=== PATIENT | female | born 1990 | race Caucasian/White ===

== ENCOUNTER 2017-02-26 09:45 | Emergency (ER) | payer OTHER ==
[~2017-02-26] VITALS: Ht 157.5 cm; Wt 68.2 kg
[2017-02-26] MEDS ORDERED: FOLI1TAB4 PO (09:54)
[2017-02-26 10:00] VITALS: BP 122/72
== END 2017-02-26 10:27 | disposition home or self-care (01) ==
LOC: M ED 09:45
DX: O26.891 Other specified pregnancy related conditions, first trimester (principal); N89.8 Other specified noninflammatory disorders of vagina; Z91.018 Allergy to other foods; Z91.040 Latex allergy status; Z88.8 Allergy status to other drugs, medicaments and biological substances; Z3A.13 13 weeks gestation of pregnancy

== ENCOUNTER → 2018-06-27 | Outpatient (REF) | payer OTHER ==
[~2018-06-27] MED LIST: FOLI1TAB11 PO
[2018-06-27 12:48] LABS: FREE T4 1.02 NG/DL (0.76-1.46); THYROID PEROXIDASE ANTIBODY < 28.0 U/ML (<60.0)
== END ==
LOC: M LABDRAW1 10:52
PROVIDERS: ATTEND Nurse Practitioner Family
DX: R63.5 Abnormal weight gain (principal)

== ENCOUNTER → 2019-01-01 | Outpatient (REF) | payer OTHER ==
[2019-01-01 12:39] LABS: FREE T4 0.85 NG/DL (0.76-1.46); THYROID STIMULATING HORMONE 2.73 uIU/ML (0.358-3.740)
== END ==
LOC: M LABDRAW1 10:20
PROVIDERS: ATTEND Nurse Practitioner Family
DX: R63.5 Abnormal weight gain (principal)